=== PATIENT | female | born 1995 | race Two or more races ===

== ENCOUNTER 2017-12-31 17:23 | Emergency (ER) | payer SELFPAY ==
[~2017-12-31] VITALS: Ht 154.9 cm; Wt 61.2 kg
[2017-12-31] MEDS ORDERED: oxyCODONE HCL/Acetaminophen 5/325mg ORAL ONE (18:15)
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
[2017-12-31 19:00] VITALS: BP 140/84
[2017-12-31] MEDS ORDERED: NORCO 5-325 TA1 EACH ORAL (19:58)
[2017-12-31] MEDS ORDERED: IBUPROFEN600 MG ORAL (19:58)
[2017-12-31 20:12] VITALS: BP 140/84
--- NOTE | 2018-01-01 11:22 | Diagnostic Imaging Report ---
Indication: Pain Findings: 3 views of the right wrist were obtained. There is no fracture of the wrist or malalignment. However there is a fracture of the midshaft of the radius. There is a fracture fragment that is displaced dorsally. IMPRESSION: Mid forearm radius fracture
== END 2017-12-31 20:12 | disposition home or self-care (01) ==
LOC: EMR 18:52
DX: S52.301A Unspecified fracture of shaft of right radius, initial encounter for closed fracture (principal); S50.811A Abrasion of right forearm, initial encounter; V43.52XA Car driver injured in collision with other type car in traffic accident, initial encounter; Y92.9 Unspecified place or not applicable; Z88.0 Allergy status to penicillin
CPT/HCPCS: 99283